=== PATIENT | male | born 1980 | race Caucasian/White ===

== ENCOUNTER 2016-11-19 06:16 | Day surgery (SDC) | payer OTHER ==
[~2016-11-19 06:16] MED LIST: Lactated Ringers 1,000 ML IV SCH; Lidocaine 1%/Sod Bicarbonate in NS 8.4% 1 ML Syringe IV PRN; Sodium Chloride 0.9% 10 ML Syringe FLUSH PRN
[2016-11-19] MEDS ORDERED: Lidocaine 1% 6 ML ONE (06:28)
[2016-11-19] MEDS ORDERED: Dexamethasone 4 MG/ML 5 ML MDV ONE (06:28)
[2016-11-19] MEDS ORDERED: ceFAZolin 1 GM Vial ONE (06:28)
[2016-11-19] MEDS ORDERED: Lactated Ringers 1,000 ML ONE (06:28)
[2016-11-19] MEDS ORDERED: Ondansetron 4 MG/2 ML SDV ONE (06:28)
[2016-11-19] MEDS ORDERED: HYDROmorphone 1 MG/ML Syringe ONE ×2 (06:28→07:55)
[2016-11-19] MEDS ORDERED: Ketorolac 30 MG/ML SDV ONE (06:28)
[2016-11-19] MEDS ORDERED: Propofol 200 MG/20 ML SDV ONE ×2 (06:29→07:26)
[2016-11-19] MEDS ORDERED: Midazolam 1 MG/ML 2 ML SDV ONE (06:29)
[2016-11-19] MEDS ORDERED: fentaNYL 250 MCG/5 ML SDV ONE (06:30)
--- NOTE | 2016-11-19 06:31 | PCM.PREANE ---
Preanesthetic Assessment - Physical Assessment Height: 1.91 m Weight: 108.862 kg - Lab Values: Laboratory Last Values MRSA (PCR) Negative 11/11/16 13:14 - Allergies Allergies/Adverse Reactions: Allergies Allergy/AdvReac Type Severity Reaction Status Date / Time enalapril Allergy Cough Verified 11/18/16 16:02 PreAnesthesia Questionnaire - Past Health History Medical/Surgical History: Denies Medical/Surgical History HEENT History: Reports: Impaired vision Cardiovascular History: Reports: Hypertension Respiratory History: Reports: None Gastrointestinal History: Reports: None Genitourinary History: Reports: None BROOM STITCHER History: Reports: None Neurological History: Reports: None Psychiatric History: Reports: Anxiety Endocrine/Metabolic History: Reports: None Hematologic History: Reports: None Immunologic History: Reports: None Oncologic (Cancer) History: Reports: None Dermatologic History: Reports: None - Past Surgical History Head Surgeries/Procedures: Reports: None HEENT Surgical History: Reports: Oral surgery Musculoskeletal Surgical History: Reports: Other (see below) Other Musculoskeletal Surgeries/Procedures:: R knee meniscus tear - SUBSTANCE USE Smoking Status *Q: Never Smoker Recreational Drug Use History: No - HOME MEDS Home Medications: Home Meds Losartan [Cozaar] 100 mg PO DAILY 05/06/16 [History] Diclofenac Sodium [Voltaren 1% Gel] 1 applic TOP BID PRN 11/18/16 [History] FLUoxetine HCl [Prozac] 40 mg PO DAILY 11/18/16 [History] hydrOXYzine Pamoate [Hydroxyzine Pamoate] 75 mg PO BEDTIME 11/18/16 [History] risperiDONE [Risperdal] 2 mg PO BEDTIME 11/18/16 [History] Aspirin/Calcium Carbonate/Mag [Aspirin Buffered 325 mg Tab] 325 mg PO BID #100 tablet 11/19/16 [Rx] Hydrocodone/Acetaminophen [[place] 5-325] 1 - 2 each PO Q6H PRN #20 tablet [Rx] - CURRENT (IN HOUSE) MEDS Current Meds: Current Medications Lactated Ringer's (Ringers, Lactated) 1,000 mls @ 125 mls/hr IV ASDIRECTED KIANA Stop: 11/19/16 23:00 Lidocaine/Sodium Bicarbonate (Buffered Lidocaine 1% In Ns 8.4%) 0.25 ml IV ONETIME PRN PRN Reason: Prior to IV Start Stop: 11/19/16 18:00 Sodium Chloride (Saline Flush) 10 ml FLUSH ASDIRECTED PRN PRN Reason: Keep Vein Open Stop: 11/19/16 18:00 Discontinued Medications Cefazolin Sodium (Ancef) Confirm Administered Dose 2 gm .ROUTE .STK-MED ONE Stop: 11/19/16 06:29 Dexamethasone (Dexamethasone) Confirm Administered Dose 20 mg .ROUTE .STK-MED ONE Stop: 11/19/16 06:29 Fentanyl (Sublimaze) Confirm Administered Dose 250 mcg .ROUTE .STK-MED ONE Stop: 11/19/16 06:31 Hydromorphone HCl (Dilaudid) Confirm Administered Dose 1 mg .ROUTE .STK-MED ONE Stop: 11/19/16 06:29 Lidocaine HCl (Xylocaine-Mpf 1%) Confirm Administered Dose 6 mls @ as directed .ROUTE .STK-MED ONE Stop: 11/19/16 06:29 Lactated Ringer's (Ringers, Lactated) Confirm Administered Dose 1,000 mls @ as directed .ROUTE .STK-MED ONE Stop: 11/19/16 06:29 Ketorolac Tromethamine (Toradol) Confirm Administered Dose 30 mg .ROUTE .STK- MED ONE Stop: 11/19/16 06:29 Midazolam HCl (Versed 1 Mg/Ml) Confirm Administered Dose 2 mg .ROUTE .STK-MED ONE Stop: 11/19/16 06:30 Ondansetron HCl (Zofran) Confirm Administered Dose 4 mg .ROUTE .STK-MED ONE Stop: 11/19/16 06:29 Propofol (Diprivan 20 Ml) Confirm Administered Dose 200 mg .ROUTE .STK-MED ONE Stop: 11/19/16 06:30 Preanesthetic Assessment - ANESTHESIA/TRANSFUSION/FAMILY HX Anesthesia/Transfusion History: No Prior Transfusion(s), Prior Anesthesia Type of Anesthesia Reaction: Denies: Allergy, Anesthesia Awareness, Excessive Somnolence, Excessive Nausea/Vomiting, Excessive Itching, Excessive Shivering, Malignant Hyperthermia, Malignant Hyperthermia, Family History, Pseudocholinesterase Deficiency, Pseudocholinesterase Deficiency, Family History of, Urinary Retention, Unknown, Other (see below) Family History of Anesthesia Reaction: No Intubation History: Unknown - REVIEW OF SYSTEMS Constitutional: Reports: no symptoms SEARCH ANALYST: Reports: no symptoms Respiratory: Reports: no symptoms, cough Cardiovascular: Reports: blood pressure problem GI: Reports: no symptoms, vomiting Other: Reports: Depression, Anxiety - PHYSICAL ASSESSMENT HR: 83 O2 Sat by Pulse Oximetry: 97 RR: 16 BP: 135/95 Temp: 36.6 C Height: 1.91 m Weight: 128 kg NPO Status Date: 11/18/16 NPO Status Time: 23:55 ASA Class: 2 Mental Status: Alert & Oriented x3 Airway Class: Mallampati = 2 Dentition: Reports: Normal Dentition, Caries Thyro-Mental Finger Breadths: 3 Mouth Opening Finger Breadths: 3 ROM/Head Extension: Full Respiratory Status: lungs clear to auscultation bilaterally Cardiovascular Status: regular rate & rhythm, normal S1, S2, no murmur, blood pressure WNL - LAB Values: Laboratory Last Values MRSA (PCR) Negative 11/11/16 13:14 Reviewed and Noted. - IMAGING/EKG Impressions: EKG: sinus rhythm, possible LAE, abnormal R wave progression, RSR prime. - ALLERGIES Allergies/Adverse Reactions: Allergies Allergy/AdvReac Type Severity Reaction Status Date / Time enalapril Allergy Cough Verified 11/18/16 16:02 - ANESTHESIA PLAN Preop Beta Ayanna: No Anesthesia Type Planned: General Anesthesia - ACKNOWLEDGEMENTS Pt an Appropriate Candidate for the Planned Anesthesia: Yes Alternatives and Risks of Anesthesia Discussed w Pt/Guardian: Yes Pt/Guardian Understands and Agrees with Anesthesia Plan: Yes
[2016-11-19] MEDS ORDERED: EPINEPHrine 1:1000 1 MG/ML 30 ML MDV ONE (06:37)
[2016-11-19] MEDS ORDERED: Bupivacaine 0.25% 30 ML SDV ONE (06:37)
[2016-11-19] MEDS ORDERED: Ondansetron 4 MG/2 ML SDV IVPUSH PRN (07:57)
[2016-11-19] MEDS ORDERED: Meperidine PF 50 MG/ML Syringe IVPUSH PRN (07:57)
[2016-11-19] MEDS ORDERED: HYDROmorphone 0.5 MG/0.5 ML Syringe IVPUSH PRN (07:57)
[2016-11-19] MEDS ORDERED: fentaNYL 100 MCG/2 ML SDV IVPUSH PRN (07:57)
--- NOTE | 2016-11-19 08:29 | PCM.POSTAN ---
POST ANESTHESIA ASSESSMENT - MENTAL STATUS Mental Status: somnolent - VITAL SIGNS Pulse Rate: 72 SaO2: 94 Resp Rate: 9 Blood Pressure: 86/40 (96/68 10 minutes later) Temperature: 36.7 C - RESPIRATORY Respiratory Status: respiratory rate WNL, airway patent, O2 saturation stable, supplemental oxygen - CARDIOVASCULAR CV Status: pulse rate WNL, blood pressure stable - GASTROINTESTINAL GI Status: no symptoms - POST OP HYDRATION Hydration Status: adequate & stable
[2016-11-19 10:51] VITALS: BP 117/75
--- NOTE | 2016-11-19 11:54 | PCM48HPAN ---
Post Anesthesia Note - EVALUATION WITHIN 48HRS OF ANESTHETIC Vital Signs in Normal Range: Yes Patient Participated in Evaluation: Yes Respiratory Function Stable: Yes Airway Patent: Yes Cardiovascular Function Stable: Yes Hydration Status Stable: Yes Pain Control Satisfactory: Yes Nausea and Vomiting Control Satisfactory: Yes Mental Status Recovered: Yes
--- NOTE | 2016-11-22 22:32 | PCM.OPNOTE ---
- General Post-Op/Procedure Note Date of Surgery/Procedure: 11/19/16 Operative Procedure(s): right knee video arthroscopy with partial medial meniscectomy Pre Op Diagnosis: right knee medial meniscus tear Post-Op Diagnosis: Same Anesthesia Technique: General LMA, Local Primary Surgeon: Salty Antonio Anesthesia Provider: Alyssa Low Sports Analyst: Tiffani Herndon in mLs: 5 Complications: None Condition: Good
--- NOTE | 2016-11-22 23:25 | OR ---
DATE OF OPERATION: 11/19/2016 SURGEON: Salty Antonio MD OPERATIVE PROCEDURE: Right knee video arthroscopy with partial medial meniscectomy. PREOPERATIVE DIAGNOSIS: Right knee medial meniscus tear. POSTOPERATIVE DIAGNOSIS: Right knee medial meniscus tear. ANESTHESIA: Technique general LMA with local. ANESTHESIA PROVIDER: Alyssa Low CRNA. CHANCELLOR: Tiffani Herndon PA-C. ESTIMATED BLOOD LOSS: Less than 5 mL. COMPLICATIONS: None. CONDITION: Stable. DESCRIPTION OF PROCEDURE: The patient was identified in the preop holding area. After proper site was marked and identified by the surgeon. The patient was taken back to the operating theater, where after adequate anesthesia, the patient had nonsterile tourniquet applied to the right lower extremity and the left lower extremity was placed in a C-clamp casas was then placed in a right lower extremity and the right lower extremity sterilely prepped and draped in usual sterile fashion. OR time-out was performed. The patient received 2 g IV Ancef. At this time, the right lower extremity was exsanguinated and tourniquet was inflated to 300 mmHg. Standard anterior and lateral portal was created and the scope trocar was then introduced. 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 There were no loose or foreign bodies in the mediolateral gutter. Attention was turned to the medial compartment with the use a spinal needle anterior medial portal was created. At this time, probe was introduced. There was noted to be diffuse degenerative tear of the posterior 1/3 of the medial meniscus. At this time, a partial medial meniscectomy was performed to posterior third of the right knee medial meniscus, it was brought back to a stable rim. The patient did have grade 2 chondromalacia changes to the medial compartment, but there were no loose flaps. At this time, the patient had an intact ACL on the notch. Lateral compartment showed no signs of a lateral meniscus tear or chondromalacia. Excess saline was drained from the knee. A 3-0 nylon simple suture was used for closure of the portals and the patient was sent to PACU in stable condition. OPERATION PERFORMED: MMODAL /[id number]
== END 2016-11-19 10:45 | disposition home or self-care (01) ==
LOC: JD.SDS 06:16
PROVIDERS: ATTEND Orthopaedic Surgery
PROC: 0SBC4ZZ Excision of Right Knee Joint, Percutaneous Endoscopic Approach (ICD-10-PCS; principal; 2016-11-19)
DX: S83.241A Other tear of medial meniscus, current injury, right knee, initial encounter (principal); X58.XXXA Exposure to other specified factors, initial encounter; F41.9 Anxiety disorder, unspecified; Z88.8 Allergy status to other drugs, medicaments and biological substances
CPT/HCPCS: 29881; 87641; J0171; J0690; J1100; J1170; J1885; J2250; J2405; J3010; J7120; 01400; J2704; J3490

== ENCOUNTER 2017-05-29 08:43 | Emergency (ER) | payer OTHER ==
[2017-05-29 08:59] VITALS: BP 145/98
--- NOTE | 2017-05-29 09:23 | EDM.PDOC ---
ED HPI GENERAL MEDICAL PROBLEM - General Chief Complaint: Back Pain or Injury Stated Complaint: BACK PAIN AND SWEATING Time Seen by Provider: 05/29/17 09:16 Source of Information: Reports: Patient History Limitations: Reports: No Limitations - History of Present Illness INITIAL COMMENTS - FREE TEXT/NARRATIVE: 36-year-old male presents to the ED with 2 complaints. He awoke with severe low back pain bilaterally rating down into his upper back but talks. No radiation below but talks. He states he left a football game last night with a lot of running on uneven terrain. He then fell asleep in the easy chair did go to bed till 3:00. When he woke this morning he barely could get out of bed. He's had occasional flareups of low back pain the past which have been all mechanical. No previous back surgery. He can void okay and had no problems passing his urine. Second problem is upper respiratory tract infection with marked nasal congestion and paroxysmal cough. He was concerned because he was very diaphoretic and sweaty this morning I think more due to the pain response Aziz afebrile at this time. He denies any chills during the night that he is aware of. Cold symptoms started about 5 days ago. 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 Denies: Exercise, Lifting, Sick Contact, Trauma, Other Associated Symptoms: Reports: Cough, cough w sputum, Fever/Chills, Malaise. Denies: Diaphoresis, Headaches, Nausea/Vomiting, Shortness of Breath, Syncope Treatments ELEVATOR BUILDER: Reports: NSAIDS Lower Back Pain Score (Numeric/FACES): 10 - Related Data Allergies Allergy/AdvReac Type Severity Reaction Status Date / Time enalapril Allergy Cough Verified 05/29/17 09:00 Home Meds: Home Meds Losartan [Cozaar] 100 mg PO DAILY 05/06/16 [History] FLUoxetine HCl [Prozac] 40 mg PO DAILY 11/18/16 [History] hydrOXYzine Pamoate [Hydroxyzine Pamoate] 75 mg PO BEDTIME 11/18/16 [History] Aspirin/Calcium Carbonate/Mag [Aspirin Buffered 325 mg Tab] 325 mg PO BID #100 tablet 11/19/16 [Rx] Diclofenac Sodium [Voltaren] 50 mg PO TIDMEALS #24 tab.ec 05/29/17 [Rx] Loratadine/Pseudoephedrine [Claritin-D 24 Hour Tablet] 1 each PO DAILY #5 tab.er.24h 05/29/17 [Rx] Minocycline [Minocin] 100 mg PO BID #16 cap 05/29/17 [Rx] oxyCODONE HCl/Acetaminophen [Percocet 10-325 mg Tablet] 1 - 2 each PO Q4H PRN # 28 tablet 05/29/17 [Rx] Past Medical History - Past Health History Medical/Surgical History: Denies Medical/Surgical History HEENT History: Reports: Impaired Vision Other HEENT History: wears glasses Cardiovascular History: Reports: Hypertension Respiratory History: Reports: None Gastrointestinal History: Reports: None Genitourinary History: Reports: None PRODUCT MANAGER History: Reports: None Neurological History: Reports: None Psychiatric History: Reports: Anxiety, Depression Endocrine/Metabolic History: Reports: None Hematologic History: Reports: None Immunologic History: Reports: None Oncologic (Cancer) History: Reports: None Dermatologic History: Reports: None - Past Surgical History Head Surgeries/Procedures: Reports: None HEENT Surgical History: Reports: Oral Surgery Musculoskeletal Surgical History: Reports: Arthroscopic Knee Social & Family History - Tobacco Use Smoking Status *Q: Never Smoker Second Hand Smoke Exposure: No - Caffeine Use Caffeine Use: Reports: Soda - Recreational Drug Use Recreational Drug Use: No Drug Use in Last 12 Months: No - Living Situation & Occupation Living situation: Reports: Single, Alone Occupation: Employed ED ROS GENERAL - Review of Systems Review Of Systems: See Below Constitutional: Reports: Fever, Malaise, Weakness, Fatigue. Denies: Chills HEENT: Reports: Rhinitis, Sinus Problem, Other. Denies: Ear Pain Respiratory: Reports: Cough (paroxysmal cough of greenish sputum), Sputum. Denies: Hemoptysis (greenish) Cardiovascular: Reports: Chest Pain Endocrine: Reports: No Symptoms GI/Abdominal: Reports: Decreased Appetite Musculoskeletal: Reports: Back Pain Skin: Reports: No Symptoms (history history of present illness) Neurological: Reports: No Symptoms Psychiatric: Reports: No Symptoms Hematologic/Lymphatic: Reports: No Symptoms Immunologic: Reports: No Symptoms ED EXAM,LOWER BACK PAIN/INJURY - Physical Exam Exam: See Below Exam Limited By: Physical Impairment (very stiff and sore and has marked difficulty getting up from the) General Appearance: Alert ( bed.), WD/WN, Moderate Distress (sounds very nasally congested.) Eye Exam: Bilateral Eye: Normal Inspection Ears: Normal External Exam, Normal TMs Nose: Nasal Swelling, Nasal Drainage Throat/Mouth: Normal Inspection, Normal Lips, Normal Teeth, Normal Oropharynx Head: Atraumatic, Normocephalic Neck: Normal Inspection, Supple, Non-Tender, Full Range of Motion Respiratory/Chest: No Respiratory Distress, Lungs Clear ( I.e. bronchitis. Lower lung warner are clear to auscultation.), Normal Breath Sounds, No Accessory Muscle Use, Rhonchi (mostly upper anterior chest bilaterally which clear somewhat with coughing.) Cardiovascular: Normal Peripheral Pulses, Regular Rate, Rhythm, No Edema, No Gallop, No Murmur Back Exam: Normal Inspection, Decreased Range of Motion, Vertebral Tenderness ( paraspinal muscle tenderness on the right). No: Full Range of Motion, CVA Tenderness (L), CVA Tenderness (R) Extremities: Normal Inspection, Normal Range of Motion, Non-Tender (O evidence of nerve root entrapment.), No Pedal Edema, Normal Capillary Refill Neurological: Alert, Normal Mood/Affect, Normal Dorsiflexion DTR - Lower Extremities: 1+: Ankle (R), Ankle (L), 2+: Knee (R), Knee (L) Psychiatric: Normal Affect Skin Exam: Warm, Dry, Intact, Normal Color, No Rash Course - Vital Signs Last Recorded V/S: Last Vital Signs Temp 36.5 C 05/29/17 08:54 Pulse 99 05/29/17 08:54 Resp 16 05/29/17 08:54 BP 145/98 H 05/29/17 08:54 Pulse Ox 97 05/29/17 08:54 - Radiology Interpretation Free Text/Narrative:: 36-year-old male presents the ED with acute upper respiratory tract symptoms with marked nasal congestion and sinusitis. Associated paroxysmal cough i.e. bronchitis. Postnasal drip evident. Associated sweats and fever this morning. Second problem is acute onset of severe low back pain. 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 He fell asleep in an easy chair and did make to bed till 3:00. When he awoke at 0700 hrs. she could barely get out of bed due to low back pain and stiffness and soreness. He is 6 foot 3 in his walking hunched over. He states he's had intermittent problems with low back acute pain. Examination reveals mechanical low back pain with marked pain localized L4-L5 facet joints bilaterally with right-sided paraspinal muscle spasm. There is no evidence of nerve root entrapment or radiculopathy. Lungs are clear with rhonchi upper anterior chest that is transmitted from the upper respiratory tree. Treated with Claritin-D 24-hour release 1 tablet every morning for the next 5 days. Percocet 10/3/25 milligram tablets one or 2 every 4-6 hours for pain relief as needed for low back pain and this will also work as a cough suppressant.'s close to [address]'ll also place him on Voltaren 50 mg 3 times a day for the next 8 days to help with pain and inflammation in the lower back. Also placed on minocycline 100 mg twice daily for 10 days for sinus infection. He is to follow-up with his personal physician if he's not able to return to work by Wednesday next week. Note given to excuse him from the workplace in this regard. Departure - Departure Time of Disposition: 09:23 Disposition: Home, Self-Care 01 Condition: Fair Clinical Impression: Bronchitis, Acute lumbar myofascial strain Acute sinusitis Qualifiers: Sinusitis location: unspecified location - Discharge Information Prescriptions: Diclofenac Sodium [Voltaren] 50 mg PO TIDMEALS #24 tab.ec Loratadine/Pseudoephedrine [Claritin-D 24 Hour Tablet] 1 each PO DAILY #5 tab.er.24h Minocycline [Minocin] 100 mg PO BID #16 cap oxyCODONE HCl/Acetaminophen [Percocet 10-325 mg Tablet] 1 - 2 each PO Q4H PRN # 28 tablet PRN Reason: back pain Instructions: Sinusitis, Adult, Acute Bronchitis, [id number], Lumbosacral Strain Referrals: Darci Nava MD [Primary Care Provider] - Forms: ED Department Discharge, ED Return to Work/School Form Additional Instructions: evaluation the emergent today for 2 reasons. One develop upper respiratory tract infection with significant nasal and sinus congestion and paroxysmal cough. This is to be treated with Claritin-D 24-hour release 1 tablet every morning for the next 5 days. Antibiotic is to be minocycline 100 mg twice daily for the next 8 days to clear up infection . Second problem was acute low back pain of unclear cause. It is mechanical in origin in terms that there is inflammation at the L4-L5 facet joints worse on the right as compared to the left but involving both sides of your lower back. Think this is a sprain of the facet joints leg and ankle but it's in your lower back. Treatment is time to heal. Rest. Pain medication be Percocet 10/3/25 milligram tablet 1 or 2 every 4- 6 hours for relief of pain. Also suggest prescription medication Voltaren 50 mg 3 times daily for the next 8 days to reduce pain and inflammation in the facet joints and reduce swelling and inflammation. Note given to excuse her from the workplace until Wednesday next week as this will usually be anywhere between 5- 7 days to settle down. Pain medication will also work as a cough suppressant as this is one of the ingredients in strong cough syrup. Follow-up with personal physician if not able to return to work by Wednesday next week.
== END 2017-05-29 10:00 | disposition home or self-care (01) ==
LOC: JD.ED 08:43
DX: S39.012A Strain of muscle, fascia and tendon of lower back, initial encounter (principal); J40 Bronchitis, not specified as acute or chronic; J01.90 Acute sinusitis, unspecified; I10 Essential (primary) hypertension; Z79.899 Other long term (current) drug therapy; Z88.8 Allergy status to other drugs, medicaments and biological substances; X58.XXXA Exposure to other specified factors, initial encounter
CPT/HCPCS: 99283

== ENCOUNTER 2017-09-10 06:22 | Day surgery (SDC) | payer OTHER ==
[2017-09-10] MEDS ORDERED: Bupivacaine 0.25% 30 ML SDV ONE (06:26)
--- NOTE | 2017-09-10 07:04 | PCM.PREANE ---
Preanesthetic Assessment - Anesthesia/Transfusion/Family Hx Anesthesia History: Prior Anesthesia Without Reaction Family History of Anesthesia Reaction: No Transfusion History: No Prior Transfusion(s) - Review of Systems General: No Symptoms Pulmonary: No Symptoms Cardiovascular: No Symptoms Gastrointestinal: No Symptoms Neurological: No Symptoms Other: Reports: None - Physical Assessment NPO Status Date: 09/09/17 NPO Status Time: 00:00 Pulse: 70 O2 Sat by Pulse Oximetry: 92 Respiratory Rate: 16 Blood Pressure: 164/97 Temperature: 36.4 C Height: 1.91 m Weight: 128.82 kg ASA Class: 2 Mental Status: Alert & Oriented x3 Airway Class: Mallampati = 2 Dentition: Reports: Normal Dentition Thyro-Mental Finger Breadths: 3 Mouth Opening Finger Breadths: 2 ROM/Head Extension: Full Lungs: Clear to Auscultation, Normal Respiratory Effort Cardiovascular: Regular Rate, Regular Rhythm - Lab Values: Laboratory Last Values MRSA (PCR) Negative 09/08/17 12:18 - Allergies Allergies/Adverse Reactions: Allergies Allergy/AdvReac Type Severity Reaction Status Date / Time enalapril Allergy Cough Verified 09/09/17 13:47 - Anesthesia Plan Pre-Op Medication Ordered: None - Acknowledgements Anesthesia Type Planned: General Anesthesia Pt an Appropriate Candidate for the Planned Anesthesia: Yes Alternatives and Risks of Anesthesia Discussed w Pt/Guardian: Yes Pt/Guardian Understands and Agrees with Anesthesia Plan: Yes PreAnesthesia Questionnaire - Past Health History Medical/Surgical History: Denies Medical/Surgical History HEENT History: Reports: Impaired Vision Other HEENT History: wears glasses Cardiovascular History: Reports: Hypertension Respiratory History: Reports: None Gastrointestinal History: Reports: None Genitourinary History: Reports: None 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 Musculoskeletal History: Reports: Other (See Below) Other Musculoskeletal History: left knee pain Neurological History: Reports: None Psychiatric History: Reports: Anxiety, Depression Endocrine/Metabolic History: Reports: None Hematologic History: Reports: None Immunologic History: Reports: None Oncologic (Cancer) History: Reports: None Dermatologic History: Reports: None - Past Surgical History Head Surgeries/Procedures: Reports: None HEENT Surgical History: Reports: Oral Surgery Cardiovascular Surgical History: Reports: None Respiratory Surgical History: Reports: None GI Surgical History: Reports: None Female Surgical History: Reports: None Male Surgical History: Reports: None Endocrine Surgical History: Reports: None Neurological Surgical History: Reports: None Musculoskeletal Surgical History: Reports: Arthroscopic Knee Other Musculoskeletal Surgeries/Procedures:: R knee meniscus tear and repair Oncologic Surgical History: Reports: None Dermatological Surgical History: Reports: None - SUBSTANCE USE Smoking Status *Q: Never Smoker Second Hand Smoke Exposure: No Recreational Drug Use History: No - HOME MEDS Home Medications: Home Meds Losartan [Cozaar] 100 mg PO DAILY 05/06/16 [History] FLUoxetine HCl [Prozac] 40 mg PO DAILY 11/18/16 [History] hydrOXYzine Pamoate [Hydroxyzine Pamoate] 75 mg PO BEDTIME 11/18/16 [History] Hydrocodone/Acetaminophen [Hydrocodon-Acetaminophen 5-325] 1 - 2 tab PO Q6H PRN #40 tablet 09/10/17 [Rx] Aspirin 325 mg PO BID #84 tab 09/11/17 [Rx] - CURRENT (IN HOUSE) MEDS Current Meds: Current Medications Lactated Ringer's (Ringers, Lactated) 1,000 mls @ 125 mls/hr IV ASDIRECTED KIANA Stop: 09/10/17 23:00 Lidocaine/Sodium Bicarbonate (Buffered Lidocaine 1% In Ns 8.4%) 0.25 ml IV ONETIME PRN PRN Reason: Prior to IV Start Stop: 09/10/17 18:00 Sodium Chloride (Saline Flush) 10 ml FLUSH ASDIRECTED PRN PRN Reason: Keep Vein Open Stop: 09/10/17 18:00 Discontinued Medications Bupivacaine HCl (Marcaine 0.25%) Confirm Administered Dose 30 ml .ROUTE .STK- MED ONE Stop: 09/10/17 06:27
[2017-09-10] MEDS ORDERED: Propofol 200 MG/20 ML SDV ONE (07:15)
[2017-09-10] MEDS ORDERED: Ondansetron 4 MG/2 ML SDV ONE (07:15)
[2017-09-10] MEDS ORDERED: Lidocaine 1% 4 ML ONE (07:16)
[2017-09-10] MEDS ORDERED: fentaNYL 250 MCG/5 ML SDV ONE (07:16)
[2017-09-10] MEDS ORDERED: ceFAZolin 1 GM Vial ONE (07:16)
[2017-09-10] MEDS ORDERED: Midazolam 1 MG/ML 2 ML SDV ONE (07:16)
[2017-09-10] MEDS ORDERED: EPINEPHrine 1 MG/ML 30 ML MDV ONE (07:30)
[2017-09-10] MEDS ORDERED: Lactated Ringers 1,000 ML ONE (07:49)
[2017-09-10] MEDS ORDERED: HYDROmorphone 1 MG/ML Syringe ONE (07:57)
[2017-09-10] MEDS ORDERED: Ketorolac 30 MG/ML SDV ONE (08:16)
[2017-09-10] MEDS ORDERED: HYDROmorphone 0.5 MG/0.5 ML Syringe IVPUSH PRN (08:24)
[2017-09-10] MEDS ORDERED: fentaNYL 100 MCG/2 ML SDV IVPUSH PRN (08:24)
--- NOTE | 2017-09-10 08:26 | PCM.POSTAN ---
POST ANESTHESIA ASSESSMENT - MENTAL STATUS Mental Status: Somnolent - VITAL SIGNS Pulse Rate: 62 SaO2: 93 Resp Rate: 14 Blood Pressure: 87/48 Temperature: 36.5 C - RESPIRATORY Respiratory Status: Respiratory Rate WNL, Airway Patent, O2 Saturation Stable, Supplemental Oxygen - CARDIOVASCULAR CV Status: Pulse Rate WNL, Blood Pressure Stable - GASTROINTESTINAL GI Status: No Symptoms - PAIN Pain Score: 0 - POST OP HYDRATION Hydration Status: Adequate & Stable - OBSERVATIONS Free Text/Narrative:: no anesthesia complications noted
[2017-09-10 10:49] VITALS: BP 130/82
--- NOTE | 2017-09-15 07:27 | PCM.OPNOTE ---
- General Post-Op/Procedure Note Date of Surgery/Procedure: 09/10/17 Operative Procedure(s): left knee video arthroscopy with partial medial meniscectomy Pre Op Diagnosis: left knee medial meniscus tear Post-Op Diagnosis: Same Anesthesia Technique: General LMA, Local Primary Surgeon: Salty Antonio Anesthesia Provider: Domenic Garza Transit Manager: Tiffani Herndon in mLs: 5 Complications: None Condition: Good
--- NOTE | 2017-09-15 08:44 | OR ---
DATE OF OPERATION: 09/10/2017 SURGEON: Salty Antonio MD OPERATION PERFORMED: Left knee video arthroscopy with partial medial meniscectomy. PREOPERATIVE DIAGNOSIS: Left knee medial meniscus tear. POSTOPERATIVE DIAGNOSIS: Left knee medial meniscus tear. ANESTHESIA: General LMA with local. ANESTHESIA PROVIDER: Domenic Garza CRNA. SECTION CUTTER: Tiffani Herndon PA-C. ESTIMATED BLOOD LOSS: 5 mL. COMPLICATIONS: None. CONDITION: Stable. DESCRIPTION OF PROCEDURE: The patient was identified in the preoperative holding area. Proper site was marked and identified by the surgeon. The patient was taken back to the operating theater where after adequate anesthesia, the patient's right lower extremity was placed in a well leg casas. The left lower extremity had a nonsterile tourniquet applied and it was then placed in a C-clamp casas. Foot of the bed was then lowered. Left lower extremity was then sterilely prepped and draped in the usual sterile fashion. OR time-out was performed. The patient received 2 g of IV Ancef. At this time, the left lower extremity was exsanguinated. Tourniquet was insufflated to 250 mmHg. Standard anterolateral portal incision was made. The scope trocar was introduced. 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 There were no loose or foreign bodies noted. Attention was turned to the medial compartment. At this time, with the use of a spinal needle, anterior medial portal was created. A probe was introduced. There was noted to be a radial and degenerative tear noted at the posterior horn of the medial meniscus just posterior to the meniscocapsular junction. It was overall a fairly stable tear. At this time, I did resect a very small portion, roughly 0.5 cm to 1 cm partial thickness of the posterior horn of the medial meniscus leaving the posterior rim intact. The posterior horn was found to be stable. The meniscocapsular junction was stable at this time. All loose fragments were irrigated out of the knee. ACL was found to be intact in the notch. Lateral compartment showed no chondromalacia changes and no lateral meniscus tear. At this time, excess saline was drained from the knee. A 3-0 nylon simple suture was used for closure of the skin. Sterile soft dressing was applied. The patient tolerated the procedure well and was sent to PACU in stable condition. MMODAL /[id number]
== END 2017-09-10 10:30 | disposition home or self-care (01) ==
LOC: JD.SDS 06:22
PROVIDERS: ATTEND Orthopaedic Surgery
DX: M23.222 Derangement of posterior horn of medial meniscus due to old tear or injury, left knee (principal); I10 Essential (primary) hypertension; F41.9 Anxiety disorder, unspecified; F33.0 Major depressive disorder, recurrent, mild; E66.9 Obesity, unspecified; Z79.899 Other long term (current) drug therapy; Z88.8 Allergy status to other drugs, medicaments and biological substances; Z68.35 Body mass index [BMI] 35.0-35.9, adult
CPT/HCPCS: 29881; 87641; J0171; J0690; J1170; J1885; J2250; J2405; J3010; J3490; J7120; 01400; J2704

== ENCOUNTER 2020-04-11 06:04 | Day surgery (SDC) | payer OTHER ==
[~2020-04-11 06:04] MED LIST changes: +Acetaminophen 325 MG Tab PO SCH; +Bisacodyl 5 MG Tab PO PRN; +Cyclobenzaprine 10 MG Tab PO PRN; +Ketorolac 15 MG/ML SDV IVPUSH PRN; +Lidocaine 1%/Sod Bicarbonate in NS 8.4% 1 ML Syringe IDERM PRN; -Lidocaine 1%/Sod Bicarbonate in NS 8.4% 1 ML Syringe IV PRN; +Magnesium Hydroxide 400 MG/5 ML Susp 30 ML Cup PO PRN; +Morphine 2 MG/ML SYRINGE IVPUSH PRN; +Naloxone 0.4 MG/ML SDV IVPUSH PRN; +Ondansetron 4 MG/2 ML SDV IVPUSH PRN; +Pregabalin 25 MG Cap PO SCH; +Sennosides 8.6 MG Tab PO PRN; +oxyCODONE ER 10 MG TAB.ER PO SCH
--- NOTE | 2020-04-11 06:42 | PCM.PREANE ---
Preanesthetic Assessment - Procedure Proposed Procedure: left total knee arthroplasty - Anesthesia/Transfusion/Family Hx Anesthesia History: Prior Anesthesia Without Reaction (nausea with general) Family History of Anesthesia Reaction: No Transfusion History: No Prior Transfusion(s) - Review of Systems General: No Symptoms Pulmonary: No Symptoms Cardiovascular: No Symptoms Gastrointestinal: No Symptoms Neurological: Tingling (right hand) Other: Reports: Diabetes (pre-diabetic) - Physical Assessment NPO Status Date: 04/10/20 NPO Status Time: 00:00 Height: 1.91 m Weight: 134.7 kg ASA Class: 2 Mental Status: Alert & Oriented x3 Airway Class: Mallampati = 1 Dentition: Reports: Normal Dentition Thyro-Mental Finger Breadths: 3 Mouth Opening Finger Breadths: 3 ROM/Head Extension: Full Lungs: Clear to Auscultation, Normal Respiratory Effort Cardiovascular: Regular Rate, Regular Rhythm - Lab Values: Laboratory Last Values COVID-19 PCR Not detected (NOT DETECT) 04/08/20 10:30 MRSA (PCR) Negative 03/20/20 15:46 - Allergies Allergies/Adverse Reactions: Allergies Allergy/AdvReac Type Severity Reaction Status Date / Time enalapril Allergy Cough Verified 04/10/20 14:51 - Anesthesia Plan Pre-Op Medication Ordered: None - Acknowledgements Anesthesia Type Planned: Spinal Pt an Appropriate Candidate for the Planned Anesthesia: Yes Alternatives and Risks of Anesthesia Discussed w Pt/Guardian: Yes Pt/Guardian Understands and Agrees with Anesthesia Plan: Yes PreAnesthesia Questionnaire - Past Health History Medical/Surgical History: Denies Medical/Surgical History HEENT History: Reports: Impaired Vision Other HEENT History: wears glasses. Cardiovascular History: Reports: Hypertension Respiratory History: Reports: None Gastrointestinal History: Reports: None Genitourinary History: Reports: None TILE GRADER History: Reports: None Musculoskeletal History: Reports: Other (See Below) Other Musculoskeletal History: bilateral knee scopes, right knee replacement Neurological History: Reports: None Psychiatric History: Reports: Anxiety, Depression Endocrine/Metabolic History: Reports: None Hematologic History: Reports: None Immunologic History: Reports: None Oncologic (Cancer) History: Reports: None Dermatologic History: Reports: None - Past Surgical History Head Surgeries/Procedures: Reports: None HEENT Surgical History: Reports: Oral Surgery Cardiovascular Surgical History: Reports: None Respiratory Surgical History: Reports: None GI Surgical History: Reports: None Female Surgical History: Reports: None Male Surgical History: Reports: None Endocrine Surgical History: Reports: None Neurological Surgical History: Reports: None Musculoskeletal Surgical History: Reports: Arthroscopic Knee Other Musculoskeletal Surgeries/Procedures:: R knee meniscus tear and repair Oncologic Surgical History: Reports: None Dermatological Surgical History: Reports: None - SUBSTANCE USE Smoking Status *Q: Never Smoker Tobacco Use Within Last Twelve Months: No Second Hand Smoke Exposure: No Days Per Week of Alcohol Use: 1 Number of Drinks Per Day: 0 Total Drinks Per Week: 0 Recreational Drug Use History: No - HOME MEDS Home Medications: Home Meds FLUoxetine HCl [Prozac] 40 mg PO DAILY 11/18/16 [History] Losartan/Hydrochlorothiazide [Losartan-HCTZ 100-12.5 MG] 1 tab PO DAILY 04/10/20 [History] Non-Formulary Medication [NF Drug] 2 tab PO DAILY 04/10/20 [History] Non-Formulary Medication [NF Drug] 2 tab PO DAILY 04/10/20 [History] Non-Formulary Medication [NF Drug] 2 tab PO DAILY 04/10/20 [History] Topiramate [Topamax] 100 mg PO DAILY 04/10/20 [History] metFORMIN HCl [Metformin HCl] 500 mg PO DAILY 04/10/20 [History] - CURRENT (IN HOUSE) MEDS Current Meds: Current Medications Acetaminophen (Tylenol) 975 mg PO ONETIME [facility] Stop: 04/11/20 16:00 Last Admin: 04/11/20 06:25 Dose: 975 mg Documented by: Aspirin (Ecotrin) 325 mg PO BID [facility] Bisacodyl (Dulcolax) 5 mg PO DAILY PRN PRN Reason: Constipation Morphine Sulfate 8 mg/Epinephrine HCl 0.3 mg/Cefuroxime Sodium 750 mg/Ketorolac Tromethamine 30 mg/Sodium Chloride 7.9 ml 0 mg .XX ASDIRECTED PRN PRN Reason: Pain Cyclobenzaprine HCl (Flexeril) 10 mg PO TID PRN PRN Reason: Spasms Docusate Sodium (Colace) 100 mg PO BID [facility] Famotidine (Pepcid) 20 mg PO Q12H [facility] Lactated Ringer's (Ringers, Lactated) 1,000 mls @ 125 mls/hr IV ASDIRECTED [facility] Stop: 04/11/20 23:00 Cefazolin Sodium/Dextrose 2 gm (/ Premix) 50 mls @ 100 mls/hr IV Q8H [facility] Stop: 04/11/20 22:29 Ketorolac Tromethamine (Toradol) 15 mg IVPUSH Q6H PRN PRN Reason: Pain Lidocaine/Sodium Bicarbonate (Buffered Lidocaine 1% In Ns 8.4%) 0.25 ml IDERM ONETIME PRN PRN Reason: Prior to IV Start Stop: 04/11/20 18:00 Magnesium Hydroxide (Milk Of Magnesia) 30 ml PO BID PRN PRN Reason: Constipation Morphine Sulfate (Morphine) 2 mg IVPUSH Q2H PRN PRN Reason: Breakthrough Pain Naloxone HCl (Narcan) 0.1 mg IVPUSH Q5M PRN PRN Reason: Oversedation Ondansetron HCl (Zofran) 4 mg IVPUSH Q6H PRN PRN Reason: Nausea/Vomiting Oxycodone HCl (Oxycontin) 10 mg PO ONETIME [facility] Stop: 04/11/20 18:00 Last Admin: 04/11/20 06:26 Dose: 10 mg Documented by: Oxycodone/Acetaminophen (Percocet 325-5 Mg) 1 - 2 tab PO Q4H PRN PRN Reason: Pain Pregabalin (Lyrica) 50 mg PO ONETIME [facility] Stop: 04/11/20 18:00 Last Admin: 04/11/20 06:25 Dose: 50 mg Documented by: Senna (Senna) 8.6 mg PO BID PRN PRN Reason: Constipation Sodium Chloride (Saline Flush) 10 ml FLUSH ASDIRECTED PRN PRN Reason: Keep Vein Open Stop: 04/11/20 18:00 Discontinued Medications Bupivacaine HCl (Sensorcaine-Mpf 0.25%) Confirm Administered Dose 30 ml .ROUTE .STK-MED ONE Stop: 04/11/20 06:15 Cefazolin Sodium (Ancef) Confirm Administered Dose 2 gm .ROUTE .STK-MED ONE Stop: 04/11/20 06:14 Iodine (Iodine 2% Mild Tincture) Confirm Administered Dose 30 ml .ROUTE .STK-MED ONE Stop: 04/11/20 06:15 Tranexamic Acid (Cyklokapron) Confirm Administered Dose 1,000 mg .ROUTE .STK-MED ONE Stop: 04/11/20 06:14 Vancomycin HCl (Vancomycin) Confirm Administered Dose 1 gm .ROUTE .[facility] ONE Stop: 04/11/20 06:14
[2020-04-11] MEDS ORDERED: Ondansetron 4 MG/2 ML SDV ONE (06:53)
[2020-04-11] MEDS ORDERED: Propofol 200 MG/20 ML SDV ONE ×3 (06:54→08:22)
[2020-04-11] MEDS ORDERED: fentaNYL 100 MCG/2 ML SDV ONE (06:55)
[2020-04-11] MEDS ORDERED: Midazolam 1 MG/ML 2 ML SDV ONE (06:55)
[2020-04-11] MEDS ORDERED: ceFAZolin 1 GM Vial ONE (06:57)
[2020-04-11] MEDS ORDERED: Lidocaine 1% 4 ML ONE (07:00)
[2020-04-11] MEDS: Morphine 8 MG, EPINEPHrine 0.3 MG, Cefuroxime 750 MG, Ketorolac 30 MG, Sodium Chloride ... PRN ×10 (08:03→08:44)
[2020-04-11] MEDS: Iodine/Sodium Iodide 2% Tincture 30 ML Bottle ONE ×2 (08:03→08:36)
[2020-04-11] MEDS: ceFAZolin 1 GM Vial ONE ×2 (08:03→08:39)
[2020-04-11] MEDS: Vancomycin 1 GM SDV ONE ×2 (08:04→08:46)
[2020-04-11] MEDS: Bupivacaine 0.25% 10 ML SDV ONE ×2 (08:04→08:44)
[2020-04-11] MEDS ORDERED: Lactated Ringers 1,000 ML ONE (08:45)
--- NOTE | 2020-04-11 09:32 | PCM.POSTAN ---
POST ANESTHESIA ASSESSMENT - MENTAL STATUS Mental Status: Alert, Oriented - VITAL SIGNS Vital Signs: Last Vital Signs Temp 36.3 C 04/11/20 09:12 Pulse 72 04/11/20 06:00 Resp 16 04/11/20 09:30 BP 119/70 04/11/20 09:30 Pulse Ox 98 04/11/20 09:30 - RESPIRATORY Respiratory Status: Respiratory Rate WNL, Airway Patent, O2 Saturation Stable - CARDIOVASCULAR CV Status: Pulse Rate WNL - GASTROINTESTINAL GI Status: No Symptoms - PAIN Pain Score: 0 - POST OP HYDRATION Hydration Status: Adequate & Stable - OBSERVATIONS Free Text/Narrative:: no anesthesia complications noted
--- NOTE | 2020-04-11 10:10 | PCM.SN.2 ---
- Free Text/Narrative Note: Left selective femoral nerve block at the adductor canal for post-operative pain control Time Out: 949 Start: 949 End: 956 Chart reviewed. Consent signed. Questions answered. Appropriate monitors applied. Time out performed. Left mid-shaft femur identified via ultrasound. Scanning medially of left femur, identification of the femoral artery, femoral vein, and nerve bundles noted within the adductor canal. The skin was prepped lateral to the ultrasound probe with chlorahexadine times two. The 21ga 4 insulated block needle was inserted under direct ultrasound guidance into the adductor canal. 25mL of 0.5% ropivacaine with 1:200,000 epinephrine was injected cirmcumferentially around the nerve with intermittent negative aspiration noted every 5mLs. Procedure performed under aseptic technique with sterile probe cover, sterile gloves, and mask noted. Patient tolerated the procedure well. See pictures on progress note and vital signs on nurses notes. Block completed postoperatively. Domenic Garza CRNA
[2020-04-11] MEDS ORDERED: EPINEPHrine 1 MG/ML SDV ONE (11:56)
[2020-04-11] MEDS ORDERED: Ropivacaine 0.5% 5 MG/ML 30 ML SDV ONE (11:56)
--- NOTE | 2020-04-11 13:53 | CR ---
Left knee: AP and lateral views left knee were obtained. Comparison: Prior MRI left knee study of 09/22/19. Knee prosthesis is seen. Components are aligned. Soft tissue air noted from surgical procedure. No underlying bony abnormality is appreciated. Impression: 1. Satisfactory radiographic appearance of recently placed left knee prosthesis. Diagnostic code #2 This report was dictated in MDT
[2020-04-11] MEDS: Acetaminophen/oxyCODONE 325-5 MG Tab PO PRN ×2 (14:25→19:00)
[2020-04-11] MEDS: ceFAZolin 2 GM in Premix Bag 1 BAG IV SCH (16:46)
[2020-04-11] MEDS: ceFAZolin 1 GM in Premix Bag 1 BAG IV SCH (16:46)
[2020-04-11] MEDS: Ketorolac 15 MG/ML SDV IVPUSH PRN (17:08)
[2020-04-11] MEDS: Famotidine 20 MG Tab PO SCH (20:42)
[2020-04-11] MEDS: Docusate Sodium 100 MG Cap PO SCH (20:42)
[2020-04-12] MEDS: ceFAZolin 1 GM in Premix Bag 1 BAG IV SCH ×2 (00:05→08:25)
[2020-04-12] MEDS: ceFAZolin 2 GM in Premix Bag 1 BAG IV SCH ×2 (00:06→08:25)
[2020-04-12] MEDS: Acetaminophen/oxyCODONE 325-5 MG Tab PO PRN ×2 (01:08→08:23)
[2020-04-12] MEDS: Ketorolac 15 MG/ML SDV IVPUSH PRN (04:41)
[2020-04-12] MEDS: Famotidine 20 MG Tab PO SCH (08:24)
[2020-04-12] MEDS: Docusate Sodium 100 MG Cap PO SCH (08:24)
[2020-04-12 08:27] VITALS: BP 124/78
--- NOTE | 2020-04-12 08:27 | PCM.SURGPN ---
- General Info Date of Service: 04/12/20 POD#: 1 Functional Status: Reports: Pain Controlled, Tolerating Diet, Ambulating, Urinating, Incentive Spirometry, Other (The pt has met inpt therapy goals.) - Patient Data Vitals - Most Recent: Last Vital Signs Temp 97.9 F 04/12/20 00:13 Pulse 82 04/12/20 03:30 Resp 18 04/12/20 00:13 BP 144/85 H 04/12/20 03:30 Pulse Ox 97 04/12/20 03:30 Weight - Most Recent: 308 lb 14.4 oz I&O - Last 24 Hours: Intake & Output 04/11/20 04/12/20 04/12/20 22:59 06:59 14:59 Intake Total 700 100 Balance 700 100 Lab Results Last 24 Hrs: Laboratory Results - last 24 hr 04/12/20 04/12/20 Range/Units 05:10 05:10 WBC 9.62 H (4.23-9.07) K/mm3 RBC 3.95 L (4.63-6.08) M/mm3 Hgb 12.1 L D (13.7-17.5) gm/dl Hct 36.7 L (40.1-51.0) % MCV 92.9 H (79.0-92.2) fl MCH 30.6 (25.7-32.2) pg MCHC 33.0 (32.2-35.5) g/dl RDW Std Deviation 42.2 (35.1-43.9) fL Plt Count 193 (163-337) K/mm3 MPV 11.1 (9.4-12.3) fl Sodium 131 L D (136-145) mEq/L Potassium 3.9 (3.5-5.1) mEq/L Chloride 98 (98-107) mEq/L Carbon Dioxide 24 (21-32) mEq/L Anion Gap 12.9 (5-15) BUN 17 (7-18) mg/dL Creatinine 1.1 (0.7-1.3) mg/dL Est Cr Clr Drug Dosing 106.69 mL/min Estimated GFR (MDRD) > 60 (>60) mL/min BUN/Creatinine Ratio 15.5 (14-18) Glucose 138 H (74-106) mg/dL Calcium 8.5 (8.5-10.1) mg/dL Total Bilirubin 0.7 (0.2-1.0) mg/dL AST 26 (15-37) U/L ALT 33 (16-63) U/L Alkaline Phosphatase 64 (46-116) U/L Total Protein 6.0 L (6.4-8.2) g/dl Albumin 3.2 L (3.4-5.0) g/dl Globulin 2.8 gm/dL Albumin/Globulin Ratio 1.1 (1-2) Med Orders - Current: Current Medications Aspirin (Ecotrin) 325 mg PO BID [facility] Bisacodyl (Dulcolax) 5 mg PO DAILY PRN PRN Reason: Constipation Cyclobenzaprine HCl (Flexeril) 10 mg PO TID PRN PRN Reason: Spasms Last Admin: 04/11/20 20:42 Dose: 10 mg Documented by: Docusate Sodium (Colace) 100 mg PO BID [facility] Last Admin: 04/11/20 20:42 Dose: 100 mg Documented by: Famotidine (Pepcid) 20 mg PO Q12H [facility] Last Admin: 04/11/20 20:42 Dose: 20 mg Documented by: Fluoxetine HCl (Prozac) 40 mg PO DAILY [facility] Hydrochlorothiazide (Hydrochlorothiazide) 12.5 mg PO DAILY [facility] Cefazolin Sodium/Dextrose 2 gm (/ Premix) 50 mls @ 100 mls/hr IV Q8H [facility] Stop: 04/12/20 08:29 Last Admin: 04/12/20 00:06 Dose: 100 mls/hr Documented by: Cefazolin Sodium/Dextrose 1 gm (/ Premix) 50 mls @ 100 mls/hr IV Q8H [facility] Stop: 04/12/20 08:29 Last Admin: 04/12/20 00:05 Dose: 100 mls/hr Documented by: Ketorolac Tromethamine (Toradol) 15 mg IVPUSH Q6H PRN PRN Reason: Pain Last Admin: 04/12/20 04:41 Dose: 15 mg Documented by: Losartan Potassium (Cozaar) 100 mg PO DAILY [facility] Magnesium Hydroxide (Milk Of Magnesia) 30 ml PO BID PRN PRN Reason: Constipation Morphine Sulfate (Morphine) 2 mg IVPUSH Q2H PRN PRN Reason: Breakthrough Pain Naloxone HCl (Narcan) 0.1 mg IVPUSH Q5M PRN PRN Reason: Oversedation Ondansetron HCl (Zofran) 4 mg IVPUSH Q6H PRN PRN Reason: Nausea/Vomiting Oxycodone/Acetaminophen (Percocet 325-5 Mg) 1 - 2 tab PO Q4H PRN PRN Reason: Pain Last Admin: 04/12/20 01:08 Dose: 2 tab Documented by: Senna (Senna) 8.6 mg PO BID PRN PRN Reason: Constipation Topiramate (Topamax) 100 mg PO DAILY [facility] Discontinued Medications Acetaminophen (Tylenol) 975 mg PO ONETIME [facility] Stop: 04/11/20 16:00 Last Admin: 04/11/20 06:25 Dose: 975 mg Documented by: Bupivacaine HCl (Sensorcaine-Mpf 0.25%) Confirm Administered Dose 30 ml .ROUTE .STK-MED ONE Stop: 04/11/20 06:15 Last Admin: 04/11/20 08:44 Dose: 30 ml Documented by: Cefazolin Sodium (Ancef) Confirm Administered Dose 2 gm .ROUTE .STK-MED ONE Stop: 04/11/20 06:14 Last Admin: 04/11/20 08:39 Dose: 2 gm Documented by: Cefazolin Sodium (Ancef) Confirm Administered Dose 3 gm .ROUTE .STK-MED ONE Stop: 04/11/20 06:58 Morphine Sulfate 8 mg/Epinephrine HCl 0.3 mg/Cefuroxime Sodium 750 mg/Ketorolac Tromethamine 30 mg/Sodium Chloride 7.9 ml 0 mg .XX ASDIRECTED PRN PRN Reason: Pain Stop: 04/11/20 12:00 Last Admin: 04/11/20 08:44 Dose: 788.3 mg Documented by: Epinephrine HCl (Adrenalin) Confirm Administered Dose 1 mg .ROUTE .STK-MED ONE Stop: 04/11/20 11:57 Fentanyl (Sublimaze) Confirm Administered Dose 100 mcg .ROUTE .STK-MED ONE Stop: 04/11/20 06:56 Lactated Ringer's (Ringers, Lactated) 1,000 mls @ 125 mls/hr IV ASDIRECTED [facility]IANA Stop: 04/11/20 23:00 Last Admin: 04/11/20 07:21 Dose: 125 mls/hr Documented by: Lidocaine HCl (Xylocaine-Mpf 1%) Confirm Administered Dose 4 mls @ as directed .ROUTE .STK-MED ONE Stop: 04/11/20 07:01 Lactated Ringer's (Ringers, Lactated) Confirm Administered Dose 1,000 mls @ as directed .ROUTE .STK-MED ONE Stop: 04/11/20 08:46 Iodine (Iodine 2% Mild Tincture) Confirm Administered Dose 30 ml .ROUTE .STK-MED ONE Stop: 04/11/20 06:15 Last Admin: 04/11/20 08:36 Dose: 18 ml Documented by: Ketorolac Tromethamine (Toradol) 15 mg IVPUSH Q6H PRN PRN Reason: Pain Lidocaine/Sodium Bicarbonate (Buffered Lidocaine 1% In Ns 8.4%) 0.25 ml IDERM ONETIME PRN PRN Reason: Prior to IV Start Stop: 04/11/20 18:00 Last Admin: 04/11/20 07:21 Dose: 0.25 ml Documented by: Midazolam HCl (Versed 1 Mg/Ml) Confirm Administered Dose 2 mg .ROUTE .STK-MED ONE Stop: 04/11/20 06:56 Ondansetron HCl (Zofran) Confirm Administered Dose 4 mg .ROUTE .STK-MED ONE Stop: 04/11/20 06:54 Oxycodone HCl (Oxycontin) 10 mg PO ONETIME [facility] Stop: 04/11/20 18:00 Last Admin: 04/11/20 06:26 Dose: 10 mg Documented by: Pregabalin (Lyrica) 50 mg PO ONETIME [facility] Stop: 04/11/20 18:00 Last Admin: 04/11/20 06:25 Dose: 50 mg Documented by: Propofol (Diprivan 20 Ml) Confirm Administered Dose 200 mg .ROUTE .STK-MED ONE Stop: 04/11/20 06:55 Propofol (Diprivan 20 Ml) Confirm Administered Dose 200 mg .ROUTE .STK-MED ONE Stop: 04/11/20 07:49 Propofol (Diprivan 20 Ml) Confirm Administered Dose 200 mg .ROUTE .STK-MED ONE Stop: 04/11/20 08:23 Ropivacaine (Naropin 0.5%) Confirm Administered Dose 30 ml .ROUTE .STK-MED ONE Stop: 04/11/20 11:57 Sodium Chloride (Saline Flush) 10 ml FLUSH ASDIRECTED PRN PRN Reason: Keep Vein Open Stop: 04/11/20 18:00 Tranexamic Acid (Cyklokapron) Confirm Administered Dose 1,000 mg .ROUTE .STK-MED ONE Stop: 04/11/20 06:14 Last Admin: 04/11/20 08:50 Dose: 1,000 mg Documented by: Vancomycin HCl (Vancomycin) Confirm Administered Dose 1 gm .ROUTE .STK-MED ONE Stop: 04/11/20 06:14 Last Admin: 04/11/20 08:46 Dose: 1 gm Documented by: - Exam Wound/Incisions: Dressing Dry and Intact General: Alert, Cooperative, No Acute Distress Lungs: Normal Respiratory Effort Extremities: Other (NVS intact for LLE. Shahrzad's negative.) Sepsis Event Note - Evaluation Sepsis Screening Result: No Definite Risk - Focused Exam Vital Signs: Vital Signs Temp Pulse Resp BP Pulse Ox 04/12/20 03:30 82 144/85 H 97 04/12/20 00:13 97.9 F 70 18 143/79 H 100 04/11/20 20:35 72 142/83 H 98 - Problem List Review Problem List Initiated/Reviewed/Updated: Yes - My Orders Last 24 Hours: Active Orders 24 hr Category Date Time Status Communication Order [RC] ROUTINE Care 04/11/20 09:26 Active Notify Provider [RC] ASDIRECTED Care 04/11/20 09:26 Active Pulse Oximetry [RC] ASDIRECTED Care 04/11/20 09:26 Active Ready for Discharge [RC] PER UNIT ROUTINE Care 04/12/20 08:25 Ordered [employer] Diet [DIET] Diet 04/11/20 Lunch Active Aspirin [Ecotrin] Med 04/12/20 09:00 Active 325 mg PO BID Docusate Sodium [Colace] Med 04/11/20 21:00 Active 100 mg PO BID FLUoxetine [PROzac] Med 04/12/20 09:00 Active 40 mg PO DAILY Famotidine [Pepcid] Med 04/11/20 21:00 Active 20 mg PO Q12H Ketorolac [Toradol] Med 04/11/20 13:00 Active 15 mg IVPUSH Q6H PRN Losartan [Cozaar] Med 04/12/20 09:00 Active 100 mg PO DAILY Topiramate [Topamax] Med 04/12/20 09:00 Active 100 mg PO DAILY ceFAZolin [Ancef] 1 gm Med 04/11/20 16:00 Active Premix Bag 1 bag IV Q8H ceFAZolin [Ancef] 2 gm Med 04/11/20 16:00 Active Premix Bag 1 bag IV Q8H hydroCHLOROthiazide Med 04/12/20 09:00 Active 12.5 mg PO DAILY Medication Orders Aspirin (Ecotrin) 325 mg PO BID [facility] Bisacodyl (Dulcolax) 5 mg PO DAILY PRN PRN Reason: Constipation Cyclobenzaprine HCl (Flexeril) 10 mg PO TID PRN PRN Reason: Spasms Last Admin: 04/11/20 20:42 Dose: 10 mg Documented by: JONG Docusate Sodium (Colace) 100 mg PO BID [facility] Last Admin: 04/11/20 20:42 Dose: 100 mg Documented by: JONG Famotidine (Pepcid) 20 mg PO Q12H [facility] Last Admin: 04/11/20 20:42 Dose: 20 mg Documented by: JONG Fluoxetine HCl (Prozac) 40 mg PO DAILY [facility] Hydrochlorothiazide (Hydrochlorothiazide) 12.5 mg PO DAILY [facility] Cefazolin Sodium/Dextrose 2 gm (/ Premix) 50 mls @ 100 mls/hr IV Q8H [facility] Stop: 04/12/20 08:29 Last Admin: 04/12/20 00:06 Dose: 100 mls/hr Documented by: Infusion: 04/11/20 17:16 Dose: 100 mls/hr Documented by: Admin: 04/11/20 16:46 Dose: 100 mls/hr Documented by: WILLIE Cefazolin Sodium/Dextrose 1 gm (/ Premix) 50 mls @ 100 mls/hr IV Q8H [facility] Stop: 04/12/20 08:29 Last Admin: 04/12/20 00:05 Dose: 100 mls/hr Documented by: Infusion: 04/11/20 17:16 Dose: 100 mls/hr Documented by: Admin: 04/11/20 16:46 Dose: 100 mls/hr Documented by: [id number] Ketorolac Tromethamine (Toradol) 15 mg IVPUSH Q6H PRN PRN Reason: Pain Last Admin: 04/12/20 04:41 Dose: 15 mg Documented by: Admin: 04/11/20 17:08 Dose: 15 mg Documented by: [id number] Losartan Potassium (Cozaar) 100 mg PO DAILY [facility] Magnesium Hydroxide (Milk Of Magnesia) 30 ml PO BID PRN PRN Reason: Constipation Morphine Sulfate (Morphine) 2 mg IVPUSH Q2H PRN PRN Reason: Breakthrough Pain Naloxone HCl (Narcan) 0.1 mg IVPUSH Q5M PRN PRN Reason: Oversedation Ondansetron HCl (Zofran) 4 mg IVPUSH Q6H PRN PRN Reason: Nausea/Vomiting Oxycodone/Acetaminophen (Percocet 325-5 Mg) 1 - 2 tab PO Q4H PRN PRN Reason: Pain Last Admin: 04/12/20 01:08 Dose: 2 tab Documented by: Admin: 04/11/20 19:00 Dose: 2 tab Documented by: [id number] Admin: 04/11/20 14:25 Dose: 2 tab Documented by: [id number] Senna (Senna) 8.6 mg PO BID PRN PRN Reason: Constipation Topiramate (Topamax) 100 mg PO DAILY [facility] - Assessment Assessment (Free Text/Narrative):: POD#1 - left TKA - Plan Plan (Free Text/Narrative):: 1. Hgb 12.1. 2. Discharge to home today. 3. Outpatient therapy. 4. 325mg ASA PO BID, frequent mobility, TEDs. The pt's case was discussed with Dr. Antonio.
[2020-04-12 08:50] VITALS: PULSE 69
[2020-04-12] MEDS ORDERED: Aspirin 325 MG Tab.EC PO SCH (09:00)
[2020-04-12] MEDS ORDERED: FLUoxetine 20 MG Cap PO SCH (09:00)
[2020-04-12] MEDS ORDERED: Losartan 100 MG Tab PO SCH (09:00)
[2020-04-12] MEDS ORDERED: Topiramate 100 MG Tab PO SCH (09:00)
[2020-04-12] MEDS ORDERED: Hydrochlorothiazide 12.5 MG Cap PO SCH (09:00)
--- NOTE | 2020-04-12 09:38 | PCM48HPAN ---
Post Anesthesia Note - EVALUATION WITHIN 48HRS OF ANESTHETIC Vital Signs in Normal Range: Yes Patient Participated in Evaluation: Yes Respiratory Function Stable: Yes Airway Patent: Yes Cardiovascular Function Stable: Yes Hydration Status Stable: Yes Pain Control Satisfactory: Yes Nausea and Vomiting Control Satisfactory: Yes Mental Status Recovered: Yes Vital Signs: Last Vital Signs Temp 36.7 C 04/12/20 08:48 Pulse 69 04/12/20 08:18 Resp 22 H 04/12/20 08:18 BP 124/78 04/12/20 08:24 Pulse Ox 97 04/12/20 08:18
--- NOTE | 2020-04-15 07:11 | PCM.OPNOTE ---
- General Post-Op/Procedure Note Date of Surgery/Procedure: 04/11/20 Operative Procedure(s): left total knee arthroplasty Pre Op Diagnosis: left knee osteoarthrosis Post-Op Diagnosis: Same Anesthesia Technique: Local, MAC, Spinal Primary Surgeon: Salty Antonio Anesthesia Provider: Domenic Garza Warping Mill Operator: Tiffani Herndon Warping Mill Operator: Nisha Weiss EBJesus in mLs: 700 Complications: None Condition: Good Free Text/Narrative:: / 9mm 35x10
--- NOTE | 2020-04-15 23:13 | OR ---
DATE OF OPERATION: 04/11/2020 SURGEON: Salty Antonio MD OPERATION PERFORMED: Left total knee arthroplasty. PREOPERATIVE DIAGNOSIS: Left knee osteoarthrosis. POSTOPERATIVE DIAGNOSIS: Left knee osteoarthrosis. ANESTHESIA: Local MAC with spinal. ANESTHESIA PROVIDER: Endy Cerna. SUCTION PLATE ROLLER HAND: Tiffani Herndon PA-C, and Nisha Weiss LPN. ESTIMATED BLOOD LOSS: 700 mL. COMPLICATIONS: None. CONDITION: Stable. IMPLANTS: 1. Kofi size 6 press-fit CR femur. 2. Sheppton size 6 press-fit tibial base plate. 3. Kofi size 6, 9 mm CS polyethylene insert. 4. Sheppton size 35 x 10 mm press-fit asymmetric patella. DESCRIPTION OF PROCEDURE: The patient was identified in the preop holding area. Proper site was marked and identified by the surgeon. The patient was taken back to the operating theater. After adequate anesthesia, the patient's left lower extremity had a nonsterile tourniquet applied and it was sterilely prepped and draped in the usual sterile fashion. OR time-out was performed. The patient received 2 g IV Ancef. At this time, the left lower extremity was exsanguinated. Tourniquet was insufflated to 300 mmHg. Standard medial parapatellar incision was made. Medial parapatellar arthrotomy was created. Deep fibers of the MCL were raised and anterior fat pad was resected. At this time, attention was turned to the patella. Patella measured at 25, it was resected to a 15 for 35 x 10 mm patella. Drill holes were then drilled and found to be in adequate position. The drill was then drilled in the distal femur and the intramedullary distal femoral cutting guide was then placed. 8 mm was resected off the distal femur and was found to be an adequate resection. Sizing guide was placed. It was found to be a size 6 press-fit CR femur that was shown on the implant record at the beginning of this dictation. The drill holes were drilled for the epicondylar axis using Whitesides line and epicondyles as reference. At this time, the 4-in-1 cutting block was placed. An anterior posterior and anterior and posterior chamfer cuts were then completed. Attention was turned to the tibia. The posterior medial lateral retractors were placed. The extramedullary tibial guide was placed. It was placed in the old footprint of the ACL. It was aligned with the center of the ankle and 0 degrees of slope, 9 mm was then resected off the unaffected side. There was found to be an acceptable reduction. At this time, posterior osteophytes were removed along with medial and lateral meniscus. A trial implant was placed with a correct sized tibia that was mentioned at the beginning of the dictation. A Sheppton size 6, 9 mm CS polyethylene insert was then placed. The patient's knee was brought through range of motion. The patella was tracking centrally and was stable to varus and valgus stress. Alignment was found to be roughly at 0 degrees. The tibia was stamped and drilled in proper rotation. The universal tibial base plate was impacted in place. Next, the Sheppton size 6 press-fit CR femur impacted into place and the Sheppton size 6, 9 mm CS polyethylene insert was placed. The patient's knee was brought into full extension. The patella was then press-fit in place at this time. Tourniquet was deflated. One liter dilute Betadine solution was irrigated through the knee along with 3 L of pulse lavage irrigation with Ancef. Periarticular injection was then completed. The patient's knee was brought through a range of motion. Knee was found to be stable to varus valgus stress, the patella was tracking centrally with full range of motion. At this time, a #2 barbed suture was used for closure of the medial parapatellar arthrotomy. Topical tranexamic acid was placed. 2-0 Vicryl was used subcutaneously, Prineo was used for the skin. The patient tolerated the procedure well and was sent to the PACU in stable condition. MIRANDA /[id number] RODOLFO
== END 2020-04-12 11:53 | disposition home or self-care (01) ==
LOC: JD.SDS 06:04 → JD.MS 06:06 → JD.SDS 04-12 11:53
PROVIDERS: ATTEND Orthopaedic Surgery
DX: M17.12 Unilateral primary osteoarthritis, left knee (principal); I10 Essential (primary) hypertension; F33.0 Major depressive disorder, recurrent, mild; Z01.812 Encounter for preprocedural laboratory examination; Z20.828 Contact with and (suspected) exposure to other viral communicable diseases; Z79.899 Other long term (current) drug therapy
CPT/HCPCS: 27447; 36415; 73560; 80053; 85027; 87635; 87641; 97110; 97116; 97161; 97165; 97535; A9270; C1776; J0171; J0690; J0697; J1885; J2001; J2250; J2270; J2405; J2704; J2795; J3010; J3370; J3490; J7120; 01402; 64450; U0002

== ENCOUNTER → 2022-06-17 | Day surgery (SDC) | payer OTHER ==
[~2022-06-17] MED LIST changes: -Bisacodyl 5 MG Tab PO PRN; +Bupivacaine 0.25% 10 ML SDV ONE; +Bupivacaine 0.5% 10 ML SDV ONE; -Cyclobenzaprine 10 MG Tab PO PRN; +EPINEPHrine 1 MG/ML SDV ONE; +HYDROmorphone 0.5 MG/0.5 ML Syringe IVPUSH PRN; -Ketorolac 15 MG/ML SDV IVPUSH PRN; -Magnesium Hydroxide 400 MG/5 ML Susp 30 ML Cup PO PRN; +Midazolam 1 MG/ML 2 ML SDV ONE; -Morphine 2 MG/ML SYRINGE IVPUSH PRN; +Morphine 8 MG, EPINEPHrine 0.3 MG, Cefuroxime 750 MG, Ketorolac 30 MG, Sodium Chloride ... PRN; -Naloxone 0.4 MG/ML SDV IVPUSH PRN; -Ondansetron 4 MG/2 ML SDV IVPUSH PRN; +Propofol 200 MG/20 ML SDV ONE; +Ropivacaine 0.5% 5 MG/ML 30 ML SDV ONE; -Sennosides 8.6 MG Tab PO PRN; +Sodium Chloride 0.9% 10 ML Syringe FLUSH SCH; +Vancomycin 1 GM SDV ONE; +ceFAZolin 2 GM Vial ONE; +cloNIDine 1,000 MCG/10 ML SDV ONE; +fentaNYL 100 MCG/2 ML SDV IVPUSH PRN; +fentaNYL 100 MCG/2 ML SDV ONE; +oxyCODONE 5 MG Tab PO ONE
[2022-06-17 15:12] VITALS: BP 119/61; PULSE 70
== END | disposition home or self-care (01) ==
LOC: JD.SDS 09:32
PROVIDERS: ATTEND Orthopaedic Surgery
DX: T84.84XA Pain due to internal orthopedic prosthetic devices, implants and grafts, initial encounter (principal); I10 Essential (primary) hypertension; G47.33 Obstructive sleep apnea (adult) (pediatric); E66.9 Obesity, unspecified; E11.9 Type 2 diabetes mellitus without complications; F32.A Depression, unspecified; F41.9 Anxiety disorder, unspecified; Z79.899 Other long term (current) drug therapy; Z98.890 Other specified postprocedural states; Z68.36 Body mass index [BMI] 36.0-36.9, adult; Z88.8 Allergy status to other drugs, medicaments and biological substances; Z79.84 Long term (current) use of oral hypoglycemic drugs
CPT/HCPCS: 27334; A9270; J0171; J0690; J0697; J0735; J1885; J2250; J2270; J2704; J2795; J3010; J3370; J3490; J7120; 01400; 64450; 76942

== ENCOUNTER 2022-06-21 12:42 | Emergency (ER) | payer OTHER ==
[2022-06-21 12:56] VITALS: BP 134/89; PULSE 85
== END 2022-06-21 14:03 | disposition home or self-care (01) ==
LOC: JD.ED 12:42
DX: Z48.817 Encounter for surgical aftercare following surgery on the skin and subcutaneous tissue (principal); Z79.84 Long term (current) use of oral hypoglycemic drugs; Z79.899 Other long term (current) drug therapy; Z79.82 Long term (current) use of aspirin
CPT/HCPCS: 99282

== ENCOUNTER 2022-07-05 23:50 | Emergency (ER) | payer BC, OTHER ==
[2022-07-06 00:55] LABS: CORONAVIRUS COVID-19 NAA NEGATIVE (NEGATIVE)
[2022-07-06 03:48] VITALS: BP 112/74; PULSE 94
== END 2022-07-06 03:49 | disposition home or self-care (01) ==
LOC: JD.ED 23:50
DX: M25.562 Pain in left knee (principal); M25.462 Effusion, left knee; I10 Essential (primary) hypertension; Z88.8 Allergy status to other drugs, medicaments and biological substances; Z79.84 Long term (current) use of oral hypoglycemic drugs; Z79.899 Other long term (current) drug therapy; Z79.82 Long term (current) use of aspirin; Z20.822 Contact with and (suspected) exposure to COVID-19
CPT/HCPCS: 0241U; 36415; 73562; 85025; 85652; 86140; 99283

== ENCOUNTER 2022-07-08 06:05 | Day surgery (SDC) | payer BC ==
[2022-07-08] MEDS ORDERED: Lidocaine 1% 4 ML ONE (06:15)
[2022-07-08] MEDS ORDERED: Propofol 200 MG/20 ML SDV ONE ×4 (06:15→08:38)
[2022-07-08] MEDS ORDERED: Midazolam 1 MG/ML 2 ML SDV ONE (06:16)
[2022-07-08] MEDS ORDERED: Lactated Ringers 1,000 ML IV SCH (07:00)
[2022-07-08] MEDS ORDERED: fentaNYL 100 MCG/2 ML SDV ONE (07:00)
[2022-07-08] MEDS ORDERED: Ropivacaine 0.5% 5 MG/ML 30 ML SDV ONE (07:04)
[2022-07-08] MEDS ORDERED: EPINEPHrine 1 MG/ML SDV ONE (07:06)
[2022-07-08] MEDS ORDERED: diphenhydrAMINE 50 MG/ML SDV IVPUSH PRN (07:28)
[2022-07-08] MEDS ORDERED: fentaNYL 100 MCG/2 ML SDV IVPUSH PRN (07:28)
[2022-07-08] MEDS ORDERED: Ondansetron 4 MG/2 ML SDV IVPUSH PRN (07:28)
[2022-07-08] MEDS ORDERED: Phenylephrine HCl In 0.9% NaCl 1 MG/10 ML Vial ONE (07:50)
[2022-07-08] MEDS ORDERED: ceFAZolin 2 GM Vial ONE (07:54)
[2022-07-08] MEDS ORDERED: Vancomycin 1 GM SDV ONE (07:58)
[2022-07-08] MEDS ORDERED: Ondansetron 4 MG/2 ML SDV ONE (08:01)
[2022-07-08] MEDS ORDERED: Lactated Ringers 1,000 ML ONE (08:01)
[2022-07-08] MEDS ORDERED: Ketorolac 30 MG/ML SDV ONE (08:45)
[2022-07-08] MEDS ORDERED: Dexmedetomidine 200 MCG/2 ML SDV ONE (09:34)
[2022-07-08 13:07] VITALS: BP 130/80; PULSE 78
== END 2022-07-08 13:00 | disposition home or self-care (01) ==
LOC: JD.SDS 06:05
PROVIDERS: ATTEND Orthopaedic Surgery
DX: T84.54XA Infection and inflammatory reaction due to internal left knee prosthesis, initial encounter (principal); G47.33 Obstructive sleep apnea (adult) (pediatric); I10 Essential (primary) hypertension; F41.9 Anxiety disorder, unspecified; F32.A Depression, unspecified; E11.9 Type 2 diabetes mellitus without complications; Z79.899 Other long term (current) drug therapy; Z79.84 Long term (current) use of oral hypoglycemic drugs; Z88.8 Allergy status to other drugs, medicaments and biological substances; Z98.890 Other specified postprocedural states; Z96.651 Presence of right artificial knee joint; Z79.82 Long term (current) use of aspirin
CPT/HCPCS: 27335; 87070; 87075; 87077; 87186; 87205; C1713; C1776; J0171; J0690; J1885; J2250; J2405; J2704; J2795; J3010; J3370; J7050; J7120; 01400; 64450; 76942

== ENCOUNTER 2022-08-09 21:01 | Emergency (ER) | payer BC ==
[2022-08-09] MEDS ORDERED: methylPREDNISolone Sodium Succinate 125 MG/2 ML SDV IVPUSH ONE (21:09)
[2022-08-09] MEDS ORDERED: Famotidine 20 MG/2 ML SDV IVPUSH ONE (21:09)
[2022-08-09] MEDS ORDERED: Sodium Chloride 0.9% 10 ML Syringe FLUSH PRN (21:09)
[2022-08-09] MEDS ORDERED: diphenhydrAMINE 50 MG/ML SDV IVPUSH ONE (21:09)
[2022-08-09 21:12] VITALS: BP 139/87; PULSE 98
== END 2022-08-09 22:20 | disposition home or self-care (01) ==
LOC: JD.ED 21:01
DX: L50.9 Urticaria, unspecified (principal); I10 Essential (primary) hypertension; E11.9 Type 2 diabetes mellitus without complications; T36.1X5A Adverse effect of cephalosporins and other beta-lactam antibiotics, initial encounter; T36.6X5A Adverse effect of rifampicins, initial encounter; Z88.8 Allergy status to other drugs, medicaments and biological substances; Z79.84 Long term (current) use of oral hypoglycemic drugs; Z79.899 Other long term (current) drug therapy; Z79.82 Long term (current) use of aspirin
CPT/HCPCS: 96374; 96375; 99282; J1200; J2930; J3490

== ENCOUNTER 2022-08-11 23:34 | Emergency (ER) | payer BC ==
[2022-08-11 23:49] VITALS: BP 151/80; PULSE 95
== END 2022-08-12 00:39 | disposition home or self-care (01) ==
LOC: JD.ED 23:34
DX: L50.9 Urticaria, unspecified (principal); I10 Essential (primary) hypertension; E11.9 Type 2 diabetes mellitus without complications; E66.9 Obesity, unspecified; Z68.36 Body mass index [BMI] 36.0-36.9, adult; Z88.8 Allergy status to other drugs, medicaments and biological substances; Z79.84 Long term (current) use of oral hypoglycemic drugs; Z79.82 Long term (current) use of aspirin; Z79.899 Other long term (current) drug therapy
CPT/HCPCS: 99283